=== PATIENT | male | born 1950 | race Caucasian/White ===

== ENCOUNTER 2017-09-09 07:55 | Day surgery (SDC) | payer MEDICARE ==
--- NOTE | ~2017-09-09 | OP ---
PATIENT NAME: TROY DAVID MEDICAL RECORD: [id number] :46 LOCATION:D.OPS ADMISSION DATE: SURGEON: ELIU BRAGA MD DATE OF OPERATION: 09/09/2017 PREOPERATIVE DIAGNOSES: 1. History of multiple colon polyps. 2. History of a complex polyp in the proximal ascending colon, which was tattooed. POSTOPERATIVE DIAGNOSES: 1. History of multiple colon polyps. 2. History of a complex polyp in the proximal ascending colon, which was tattooed. 3. Total of 3 colon polyps, which ranged in size from 8 mm to 1.0 cm and were all sessile. PROCEDURES: 1. Total colonoscopy to cecum. 2. Colonic polypectomy times 1 utilizing the arg[employer] school teacher. 3. Hot biopsy forceps polypectomies times 2. SURGEON: Eliu Braga MD STIFF LEG OPERATOR: None. BLOOD LOSS: Minimal. ANESTHESIA: General. COMPLICATIONS: None. The risks, possible complications and alternatives to the procedure were explained to the patient. He elects to proceed. The discussion specifically included, but was not limited to, bleeding requiring an emergency reoperation, infection, endoscopic perforation. OPERATIVE COURSE: The patient was conveyed to the operating room electively on 09/09/2017. General anesthesia was induced by the anesthesia staff. The patient was placed in the Lara position. A digital rectal examination was performed. A colonoscope was inserted through the anus. It was easily advanced to the cecum. The prep was adequate. I slowly withdrew the endoscope. I irrigated and aspirated extensively. A combination of normal imaging and narrow band imaging were utilized. I dragged the folds. The pullback was greater than an 18-minute pullback. A polyp was noted in the proximal ascending colon and this was a tattooed polyp. I performed a biopsy of the polyp and then ablated the polypoid base with the [employer] school teacher. Two more polyps were noted and these were removed utilizing a hot biopsy forceps polypectomy technique. A retroflexed view was obtained in the rectum. I then unretroflexed the scope and removed it under direct vision. I will plan to see the patient in my office in 2-3 weeks. I will plan for the next surveillance colonoscopy to take place in 1 year in the GI lab without the use of the argon plasma school teacher. OPERATIVE REPORT [id number] TROY DAVID TRANSINT:[id number] Voice Confirmation ID: [id number] DOCUMENT ID: [id number] ELIU BRAGA MD at 1607 CC: [id number] DICTATION DATE: 09/09/17 1032 FIELD NURSE CASE MANAGER: 09/09/17 1213 [facility] [place] 09/09/17 [place] [id number] [place] [id number]
[~2017-09-09 07:55] MED LIST: ALDACTONE25 MG PO; CALAN120 MG PO; HYDROCODONE-APA1 TAB PO; LISINOPRIL-HCTZ1 T13 PO; VERELAN120 MG PO; ZYLOPRIM100 MG PO
[2017-09-09 08:48] VITALS: BP 167/97; BMI 30.9
[2017-09-09 08:49] LABS: BASOPHILS 0.4 % (0-2); EOSINOPHILS 3.8 % (0-7); HEMATOCRIT 43.6 % (42.0-54.0); HEMOGLOBIN 14.7 g/dL (13.5-17.5); IMMATURE GRANULOCYTES 0.5 % (0-5); LYMPHOCYTES 24.3 % (15-50); MCH 29.3 pg (26.0-34.0); MCHC 33.7 g/dL (31.0-37.0); MEAN PLATELET VOLUME 9.2 fL (7.4-10.4); MONOCYTES 6.5 % (2-11); NEUTROPHILS 64.5 % (40-80); PLATELET COUNT 174 10x3/uL (130-400); RBC 5.01 10x6/uL (4.20-6.10); RDW 13.3 % (11.5-14.5); WBC 7.4 10x3/uL (4.8-10.8)
[2017-09-09 08:52] LABS: APTT 28.2 SECONDS (22.8-39.4); INR 1.01 (0.85-1.17); PROTIME 12.9 SECONDS (11.6-15.0)
== END 2017-09-09 11:40 | disposition home or self-care (01) ==
LOC: D.OPS 07:55 → D.PAN 10:15 → D.OPS 10:15 → D.PAN 11:45
PROVIDERS: Anesthesiology
DX: K63.5 Polyp of colon (principal); I10 Essential (primary) hypertension; Z01.812 Encounter for preprocedural laboratory examination